=== PATIENT | female | born 1990 | race Caucasian/White ===

== ENCOUNTER 2019-08-11 16:08 | Outpatient (CLI) | payer OTHER ==
[2019-08-11 16:27] LABS: BASOPHILS % 0.4 % (0.0-1.5); NEUTROPHILS # 2.4 # k/uL (1.4-7.7)
[2019-08-11 17:29] LABS: eGFR (Non-African) > 60
== END 2019-08-11 16:13 ==
LOC: LAB 16:08
PROVIDERS: ATTEND Family Medicine
DX: E61.1 Iron deficiency (principal); I95.0 Idiopathic hypotension; R63.4 Abnormal weight loss
CPT/HCPCS: 36415; 80053; 84443; 85025